=== PATIENT | male | born 1935 | race Caucasian/White ===

== ENCOUNTER 2020-06-09 18:01 | Inpatient (IN) | payer OTHER, SELFPAY ==
[~2020-06-09] VITALS: Ht 170.2 cm; Wt 78.5 kg
[2020-06-09 18:06] VITALS: BP_SYST 148
--- NOTE | 2020-06-09 18:06 | NUR ---
Placed in room 06 . Placed on bus driver/monitor, blood pressure machine and pulse oximeter. To gown for exam. Side rails up. Report given to CLEO STEPHENS
[2020-06-09] MEDS ORDERED: NACL 0.9% 1,000 ML IV ONE (18:15)
--- NOTE | 2020-06-09 18:15 | NUR ---
Patient BIB BLS C/O Altered LOC. Patient A&Ox3. Family reports patient became confused today after dentist appointment. Family teport several hours of confusion and unable to ambulate. family called 911.
[2020-06-09 18:44] LABS: BASOPHILS # (AUTO) 0.1 K/uL (0.0-0.2); BASOPHILS % (AUTO) 0.4 % (0.0-2.0); EOSINOPHILS % (AUTO) 0.1 % (0.0-4.0); HEMATOCRIT 45.9 % (36-54); HEMOGLOBIN 15.5 g/dL (14.0-18.0); LYMPHOCYTES # (AUTO) 0.4 K/uL (1.0-5.5); MEAN CORPUSCULAR HEMOGLOBIN 30 pg (27-31); MEAN CORPUSCULAR HGB CONC 34 % (32-36); MEAN CORPUSCULAR VOLUME 89 fL (79.0-98.0); MONOCYTES # (AUTO) 0.4 K/uL (0.0-1.0); MONOCYTES % (AUTO) 2.1 % (1.7-9.3); NEUTROPHILS # (AUTO) 18.1 K/uL (1.8-7.7); NEUTROPHILS % (AUTO) 95.4 % (40.0-70.0); PLATELET COUNT (AUTO) 193 K/uL (130-430); RED BLOOD CELL COUNT(AUTO) 5.16 MIL/uL (4.2-6.2); RED CELL DISTRIBUTION WIDTH 13.9 % (9.0-15.0); WHITE BLOOD COUNT (AUTO) 18.9 K/uL (4.8-10.8)
[2020-06-09 19:09] LABS: ANION GAP 11 (5-15); CALCIUM 8.4 mg/dL (8.4-11.0); CHLORIDE 101 mmol/L (98-107); CREATININE 1.33 mg/dL (0.55-1.30); GLUCOSE 104 mg/dL (70-99); POTASSIUM 3.1 mmol/L (3.5-5.1); SODIUM SERUM 137 mmol/L (136-145); UREA NITROGEN, BLOOD 14 mg/dL (8-21)
[2020-06-09] MEDS ORDERED: DILTIAZEM HCL 25 MG/5 ML VIAL IVP ONE (19:15)
--- NOTE | 2020-06-09 19:18 | NUR ---
Report to November RN
[2020-06-09 19:23] LABS: ALANINE AMINOTRANSFERASE 33 U/L (12-78); ALBUMIN 4.1 g/dL (3.4-4.8); ASPARTATE AMINOTRANSFERASE 29 U/L (10-37); TOTAL BILIRUBIN 1.5 mg/dL (0.0-1.0)
[2020-06-09 19:24] LABS: INR 1.1 (0.80-1.20); PROTHROMBIN TIME 10.9 SECS (9.5-12.5)
--- NOTE | 2020-06-09 19:26 | NUR ---
Patient pulled IV line and tried to get out off bed.
--- NOTE | 2020-06-09 19:28 | NUR ---
SPOKE TO GRAND DAUGHTER MICHAEL. GRAND DAUGHTER REPORTS PATIENT WAS AT THE DENTIST FOR ROUTINE CHECK UP AND STARTED SHAKING WHILE DOING XRAYS. GRANDDAUGHTER TOOK HIM HOME AND WITNESSED PATIENT IN HIS ROOM UNABLE TO STAND UP AND HAVING GENERALIZED WEAKNESS. PATIENT WAS THEN BROUGHT TO THE URGENT CARE WHEN 911 WAS CALLED. PATIENT BASELINE IS AOX 4 AND AMBULATORY.
--- NOTE | 2020-06-09 19:35 | NUR ---
PATIENT RIPPED OUT IV ON LEFT HAND. BLEEDING CONTROLLED.
--- NOTE | 2020-06-09 19:40 | NUR ---
# 20 gauge angiocath placed to RAC. Use of asceptic technique. Opsite placed over site. Blood return noted. Flushed with 10 cc of normal saline. No evidence of infiltration noted. Patient tolerated well.
[2020-06-09] MEDS ORDERED: cefTRIAXone 1 GM IVPB PREMIX 50 ML IV ONE (19:45)
[2020-06-09] MEDS ORDERED: NACL 0.9% 2,000 ML IV ONE (19:45)
--- NOTE | 2020-06-09 19:49 | NUR ---
Given Cardizem 5 mg IV as order.
--- NOTE | 2020-06-09 20:05 | NUR ---
ER at bedside examining patient.
[2020-06-09] MEDS ORDERED: VANCOMYCIN HCL 1,000 MG in NS 250 ML IV ONE (20:15)
--- NOTE | 2020-06-09 20:30 | NUR ---
Celina roman in [facility] - 06/09/20 at 2036 by [id number] Patient came back from CT scan.
--- NOTE | 2020-06-09 20:41 | NUR ---
Swabbed Covid-19 and sent to lab.
[2020-06-09] MEDS ORDERED: VANCOMYCIN HCL 1000 MG/VIAL IV ONE (20:58)
--- NOTE | 2020-06-09 21:31 | NUR ---
Patient came back from CT scan.
--- NOTE | 2020-06-09 21:34 | NUR ---
Changed new bed sheet and gown.
[2020-06-09 21:43] LABS: BILIRUBIN,URINE NEGATIVE (NEGATIVE); CLARITY/URINE CLEAR (CLEAR); COLOR,URINE YELLOW (YELLOW); GLUCOSE,URINE NEGATIVE (NEGATIVE); KETONES,URINE 1+ (NEGATIVE); LEUKOCYTE ESTERASE ,URINE NEGATIVE (NEGATIVE); NITRITE, URINE NEGATIVE (NEGATIVE); PH,URINE 5.5 (5.0-8.0); PROTEIN URINE NEGATIVE (NEGATIVE)
--- NOTE | 2020-06-09 22:11 | NUR ---
Patient resting quietly. No acute distress noted. Vital signs within normal range.
[2020-06-09 22:15] LABS: BLOOD, URINE TRACE (NEGATIVE)
[2020-06-09 22:25] LABS: BACTERIA,URINE None Seen /HPF (None Seen); CALCIUM PHOSPHATE CRYSTALS,UR None Seen /HPF (None Seen); TRICHOMONAS,URINE None Seen /HPF (None Seen); WBC,URINE NONE SEEN /HPF (0-3); YEAST,URINE None Seen /HPF (None Seen)
--- NOTE | 2020-06-09 22:25 | NUR ---
Spoke with Sharifa (Grand Daughter) to update patient status, treatment plans.
[2020-06-09] MEDS ORDERED: AMLO2.5T2 PO (22:26)
--- NOTE | 2020-06-09 22:27 | NUR ---
Medication reconciliation completed with information provided by Patient's family. Any prior medication reconciliation on file was reviewed and corrected.
--- NOTE | 2020-06-09 22:48 | NUR ---
Provide urinal for patient.
--- NOTE | 2020-06-09 22:52 | NUR ---
Patient will be admitted to care of Dr. Knowles. Admitted to Tele unit. Will go to room 132A. Belongings list completed. Complete and up to date summary report printed. SBAR report to be given at bedside with opportunity for questions.
--- NOTE | 2020-06-09 23:02 | NUR ---
ADMIT NOTE Received pt from ER to the floor with a diagnosis of sepsis. Admission process initiated. patient oriented to pain management, safety and call light-teach back done.
[2020-06-09 23:24] VITALS: BP_SYST 137
[2020-06-10] MEDS ORDERED: MORPHINE 2 MG/ML INJ. SYRINGE IVP PRN
[2020-06-10] MEDS ORDERED: NALOXONE HCL 0.4 MG/ML AMP (NARCAN) IVP PRN
[2020-06-10] MEDS ORDERED: ALBUTEROL SULFATE 0.083% 2.5 MG/3 ML VIAL.NEB INH PRN
[2020-06-10 00:05] VITALS: BP_SYST 137
[2020-06-10] MEDS ORDERED: POTASSIUM CHLORIDE 10 MEQ TAB.PRT.SR PO ONE (00:30)
[2020-06-10 01:00] VITALS: BP_SYST 140
[2020-06-10] MEDS: PIPERACILLIN/TAZO 3.375/DEX-IS 50 ML IV SCH ×4 (01:31→18:48)
[2020-06-10] MEDS: NACL 0.9% 1,000 ML IV SCH ×3 (01:32→20:00)
[2020-06-10] MEDS ORDERED: PIPERACILLIN/TAZOBACTAM 3.375 GM/VIAL (ZOSYN) IV ONE (01:32)
--- NOTE | 2020-06-10 03:00 | NUR ---
NEW IV SITE STARTED ON LEFT FOREARM 20G, IVF CHANGED TO THIS SITE, PATIENT TOLERATING IT WELL. PATIENT STILL HAS RIGHT AC 20G, PATENT AND BENIGN, NO S/S OF INFILTRATION OR INFECTION NOTED AT THIS TIME, SALINE LOCKED.
[2020-06-10 06:31] LABS: BASOPHILS % (AUTO) 0.2 % (0.0-2.0); HEMATOCRIT 37.8 % (36-54); HEMOGLOBIN 12.6 g/dL (14.0-18.0); LYMPHOCYTES # (AUTO) 0.5 K/uL (1.0-5.5); LYMPHOCYTES % (AUTO) 2.3 % (20.5-51.5); MEAN CORPUSCULAR HEMOGLOBIN 30 pg (27-31); MEAN CORPUSCULAR HGB CONC 33 % (32-36); MEAN CORPUSCULAR VOLUME 89 fL (79.0-98.0); MONOCYTES # (AUTO) 0.9 K/uL (0.0-1.0); MONOCYTES % (AUTO) 4.1 % (1.7-9.3); NEUTROPHILS # (AUTO) 19.8 K/uL (1.8-7.7); NEUTROPHILS % (AUTO) 93.4 % (40.0-70.0); PLATELET COUNT (AUTO) 154 K/uL (130-430); RED BLOOD CELL COUNT(AUTO) 4.27 MIL/uL (4.2-6.2); RED CELL DISTRIBUTION WIDTH 13.5 % (9.0-15.0); WHITE BLOOD COUNT (AUTO) 21.2 K/uL (4.8-10.8)
[2020-06-10 06:37] LABS: ALANINE AMINOTRANSFERASE 36 U/L (12-78); ALBUMIN 2.8 g/dL (3.4-4.8); ANION GAP 12 (5-15); ASPARTATE AMINOTRANSFERASE 43 U/L (10-37); CALCIUM 7.4 mg/dL (8.4-11.0); CHLORIDE 107 mmol/L (98-107); GLUCOSE 123 mg/dL (70-99); POTASSIUM 3.6 mmol/L (3.5-5.1); SODIUM SERUM 140 mmol/L (136-145); TOTAL BILIRUBIN 2.2 mg/dL (0.0-1.0); UREA NITROGEN, BLOOD 15 mg/dL (8-21)
--- NOTE | 2020-06-10 07:23 | NUR ---
OPENING NOTE Patient resting in the bed. No acute distress. Skin warm and dry to touch. IV intact to LFA, no redness, no swelling, no drainage. On NS at 100ml/hr, infusing well. Safety measure maintained. Bed locked in low position, side rails up, bed alarm on. Call light within reached. Will continue to monitor.
[2020-06-10 08:00] VITALS: BP_SYST 119
[2020-06-10] MEDS: ACETAMINOPHEN 325 MG TABLET PO PRN ×2 (08:23→20:45)
--- NOTE | 2020-06-10 08:25 | NUR ---
PKQQ=599.0, TYLENOL 650MG PO GIVEN ORDERED. PATIENT SITTING IN UPRIGHT POSITION AND EATING BREAKFAST. NO ACUTE DISTRESS. SAFETY MEASURE MAINTAINED. CALL LIGHT WITHIN REACHED. CONTINUE TO MONITOR.
--- NOTE | 2020-06-10 08:42 | NUR ---
CRITICAL LAB: TROPININ=0.[address] Eleni shelley, left message to Peg and waited to call back.
--- NOTE | 2020-06-10 09:02 | NUR ---
Nutrition Update Julius scale 16 noted. Pt admitted for sepsis Diet: Cardiac Diet BMI: 27.1 kg/m2 RD to follow per nutrition care standards.
--- NOTE | 2020-06-10 09:14 | NUR ---
RECEIVED CALL BACK FROM DR. STEWARD Reported to Dr. Steward, patient's Troponin=0.186. Dr. Steward with order Dusty Bhatia consult. Also reported to Dr. Steward, patient had ixwj=494.0 this morning.
--- NOTE | 2020-06-10 09:20 | NUR ---
CONSULT CARDIOLOGY ELEVATED TROPONIN DR ESCALANTE [phone] S/W [facility] OFFICE
--- NOTE | 2020-06-10 09:44 | NUR ---
RECHECKED TEMP=99.7
--- NOTE | 2020-06-10 10:48 | NUR ---
SEEN AND EXAMINED BY OPAL KO.
--- NOTE | 2020-06-10 11:18 | NUR ---
CONSULT ID FEVER DR SHETTY [phone] S/W [facility] OFFICE
--- NOTE | 2020-06-10 12:25 | NUR ---
ROUND Patient resting in the bed. No acute distress. IV intact, IVF infusing well. Safety measure maintained. Call light within reached. Bed locked in low position, side rails up, bed alarm on. Continue to monitor.
[2020-06-10 13:08] VITALS: BP_SYST 111
--- NOTE | 2020-06-10 14:40 | NUR ---
SEEN AND EXAMINED BY RICKY LIEBERMAN.
[2020-06-10] MEDS ORDERED: ASPIRIN 81 MG TAB.CHEW PO ONE (14:45)
--- NOTE | 2020-06-10 15:17 | NUR ---
POSITIVE BLOOD CULTURE Called and received the call from Jannette Kim. Reported positive blood culture result with Gram negative sindi. Dr. Steel with order of Gentamicin per pharmacy dose. Order read back and okay with Dr. Steel.
--- NOTE | 2020-06-10 15:37 | NUR ---
PATIENT PULLED IV OUT ON LFA, NO BLEEDING NOTE, IV TIP INTACT. PATIENT WANTED TO GO TO BATHROOM, ASSISTED TO BATHROOM WITH BM. ASSISTED BACK TO BED. CONNECTED BACK IVF NS [id number]/HR TO RAC. SAFETY MEASURE MAINTAINED. CALL LIGHT WITHIN REACHED. BED LOCKED IN LOW POSITION, SIDE RAILS UP, BED ALARM ON. CONTINUE TO MONITOR.
[2020-06-10 16:00] VITALS: BP_SYST 115
[2020-06-10] MEDS: GENTAMICIN 120 MG/ ISO-OSM 100 ML PREMIX IV SCH (17:39)
--- NOTE | 2020-06-10 17:55 | NUR ---
PATIENT MOVED TO ROOM 121 B FOR ISOLATION OF COVID PUI.
--- NOTE | 2020-06-10 18:55 | NUR ---
CLOSING NOTE Patient resting in the bed. No acute distress. Skin warm and dry to touch. IV intact to RAC, no redness, no swelling, no drainage. IVF infusing well. All needs met. On isolation. Safety measure maintained. Bed locked in low position, side rails up, bed alarm on. Call light within reached. Will endorse to night nurse.
--- NOTE | 2020-06-10 19:30 | NUR ---
Opening note Received patient awake, AOx3, no distress. He is on BSC for bowel movement. He was assisted back to bed, bed alarm on, 3 side rails up and instructed on use of call light. IVF infusing via IV to RAC. Reviewed plan of care; reason for isolation/precautions and he verbalized understanding. Will continue to monitor.
[2020-06-10 20:00] VITALS: BP_SYST 135
--- NOTE | 2020-06-10 20:50 | NUR ---
TEMP 100.3 Tylenol given for temp 100.3 (temporal scan). Patient denies pain.
--- NOTE | 2020-06-10 21:55 | NUR ---
Temp re-check temp decreased to 99.0; temporal scan
[2020-06-11] MEDS: PIPERACILLIN/TAZO 3.375/DEX-IS 50 ML IV SCH ×2 (00:01→05:50)
[2020-06-11 00:05] VITALS: BP_SYST 116
--- NOTE | 2020-06-11 00:05 | NUR ---
Antibiotic, BSC Zosyn IVPB administered as ordered. Reviewed side effects and patient verbalized understanding. Patient assisted to BSC for bowel movement; very small loose stool. Returned to bed, bed alarm/safety precautions maintained.
--- NOTE | 2020-06-11 00:30 | NUR ---
IV start IV on RAC alarms periodically d/t patient bending arm. He was informed an option of alternate IV site and he agreed to new IV placement. #20 gauge angiocath placed to right wrist. Use of asceptic technique and blood return noted. No evidence of infiltration noted. Patient tolerated and IV on RAC is saline locked.
--- NOTE | 2020-06-11 02:06 | NUR ---
Yuri Heart rate Patient is Yuri on monitor. Earlier while awake, during V/S he was yuri in 50's. information technology security analyst called to report patien'ts heart rate drops to low 40's. Patient was awakened and he denies dizziness and denies light headedness. Will continue to monitor.
[2020-06-11] MEDS: NACL 0.9% 1,000 ML IV SCH ×3 (04:10→19:56)
--- NOTE | 2020-06-11 04:10 | NUR ---
awake, IVF, V/S Patient is awake and sitting up for use of urinal, voided 200 ml bruna urine. V/S taken and remains yuri with B/P 103/57. He denies pain and reports he wants to sleep again. Hung new bag of IVF and infusing well, no infiltration noted. Safety precautions maintained.
[2020-06-11 04:11] VITALS: BP_SYST 103
--- NOTE | 2020-06-11 05:40 | NUR ---
EKG, LAB draw RT completed EKG and Senior Pastor at bedside for blood draw; tolerated.
--- NOTE | 2020-06-11 05:50 | NUR ---
Antibiotic, rounds Patient resting in bed, given due antibiotic. Provided with new gown. He felt warm, temp assessed; it was 100.1. Will give tylenol. He denies pain and has no further needs. Safety and isolation precautions maintained.
[2020-06-11] MEDS: ACETAMINOPHEN 325 MG TABLET PO PRN (05:56)
--- NOTE | 2020-06-11 05:56 | NUR ---
Temp 100.1, Tylenol Patient given Tylenol for temp of 100.1, also removed one blanket.
[2020-06-11 06:27] LABS: BASOPHILS # (AUTO) 0.1 K/uL (0.0-0.2); BASOPHILS % (AUTO) 0.8 % (0.0-2.0); EOSINOPHILS % (AUTO) 0.2 % (0.0-4.0); LYMPHOCYTES # (AUTO) 0.6 K/uL (1.0-5.5); LYMPHOCYTES % (AUTO) 5.5 % (20.5-51.5); MEAN CORPUSCULAR HEMOGLOBIN 30 pg (27-31); MEAN CORPUSCULAR HGB CONC 33 % (32-36); MEAN CORPUSCULAR VOLUME 89 fL (79.0-98.0); MONOCYTES # (AUTO) 0.7 K/uL (0.0-1.0); NEUTROPHILS # (AUTO) 10.2 K/uL (1.8-7.7); NEUTROPHILS % (AUTO) 87.5 % (40.0-70.0); PLATELET COUNT (AUTO) 121 K/uL (130-430); RED BLOOD CELL COUNT(AUTO) 4.37 MIL/uL (4.2-6.2); RED CELL DISTRIBUTION WIDTH 13.9 % (9.0-15.0)
--- NOTE | 2020-06-11 06:58 | NUR ---
temp re-check, closing note Temp decreased to 99.3; temporal scan. Patient resting in bed, no s/sx of distress and non labored breathing on room air. IVF infusing via IV to right wrist, no infiltration noted. Needs met throughout shift. Safety and isolation precautions maintained. Will endorse to day shift nurse.
[2020-06-11 07:07] LABS: WHITE BLOOD COUNT (AUTO) 11.7 K/uL (4.8-10.8)
[2020-06-11 07:31] LABS: ALANINE AMINOTRANSFERASE 44 U/L (12-78); ALBUMIN 2.6 g/dL (3.4-4.8); ANION GAP 10 (5-15); ASPARTATE AMINOTRANSFERASE 53 U/L (10-37); CALCIUM 7.6 mg/dL (8.4-11.0); CHLORIDE 108 mmol/L (98-107); GLUCOSE 96 mg/dL (70-99); POTASSIUM 3.6 mmol/L (3.5-5.1); SODIUM SERUM 139 mmol/L (136-145); THYROID STIMULATING HORMONE 3.07 uIu/mL (0.36-3.74); TOTAL BILIRUBIN 1.2 mg/dL (0.0-1.0); UREA NITROGEN, BLOOD 17 mg/dL (8-21)
[2020-06-11 08:00] VITALS: BP_SYST 124
--- NOTE | 2020-06-11 08:00 | NUR ---
Note Pt sitting on side of bed eating hhis breakfast. IVF's infusing well through right wrist IV site. RAC IV intact and patent. No SOB/resp distress or pain/discomfort noted at this time. Tele unit attached and intact at this time. No needs noted at this time. Call light within reach. Dr Chaudhary at pt's bedside assessing pt and writing orders at this time.
[2020-06-11] MEDS: ASPIRIN 81 MG TAB.CHEW PO SCH (08:28)
[2020-06-11] MEDS: ENOXAPARIN SODIUM 30 MG/0.3 ML SYRINGE SUBCUT SCH (08:29)
[2020-06-11 09:06] LABS: CHOLESTEROL 145 mg/dL (<200); HDL CHOLESTEROL 45 mg/dL (>45); LDL CHOLESTEROL 89 mg/dL (<100); TRIGLYCERIDES 80 mg/dL (30-150)
--- NOTE | 2020-06-11 09:35 | NUR ---
Note Pt resting in bed after using BSC with standby assist with RN. Denies any needs at this time. Call light within reach.
[2020-06-11 12:00] VITALS: BP_SYST 124
--- NOTE | 2020-06-11 12:00 | NUR ---
Note Pt's tele unit was dc'd and returned to monitoring tech. Pt denies any SOB/resp distress or pain/discomfort noted at this time.
--- NOTE | 2020-06-11 12:24 | NUR ---
Dietitian Recommendations *Recommend continue Cardiac Diet *Recommend add Ensure Enlive once daily to provide additional 350 kcal, 20 g protein to promote PO intake. Please see Nutrition Assessment for details. DEMAR DAVIAL
--- NOTE | 2020-06-11 14:00 | NUR ---
Note Pt aware he is NPO till 3-4pm for US of abdomen. Pt last ate breakfast at 09am. Pt asleep in bed at this time. No needs noted at this time. Call light within reach.
--- NOTE | 2020-06-11 15:50 | NUR ---
Note Dr Morocho called and notified that pt tested negative for COVID (PCR). Order for discontinue isolation precautions given at this time.
[2020-06-11 16:00] VITALS: BP_SYST 126
[2020-06-11] MEDS: GENTAMICIN 120 MG/ ISO-OSM 100 ML PREMIX IV SCH (16:13)
--- NOTE | 2020-06-11 18:05 | NUR ---
Note Pt sitting on side of bed eating his dinner. No SOB/resp distress or pain/discomfort noted at this this time. IV in right wrist intact and patent infusing IVF's well. RAC IV intact and patent at this time. Pt was checked on q1' and PRN all shift for needs and care. Pt was maintained with safety and isolation precautions all shift. No needs noted at this time. Call light within reach. Pt's 2D-echo and US of abdomen were done at bedside this shift.
--- NOTE | 2020-06-11 19:30 | NUR ---
OPENING NOTES RECEIVED REPORT FROM DAY SHIFT RN. PT RESTING IN BED, BREATHING EVEN AND UNLABORED TO ROOM AIR. NO SIGNS OF RESPIRATORY DISTRESS NOTED. IV ON RIGHT WRIST AND AC INTACT, NO SIGNS OF INFILTRATION NOTED. BED ALARM ON, LOCKED IN LOWEST POSITION. CALL LIGHT WITHIN REACH. CLOSE TO NURSING STATION. SIDE RAILS UP X3. SAFETY AND FALL PRECAUTIONS MAINTAINED. WILL CONTINUE TO MONITOR.
--- NOTE | 2020-06-11 19:56 | NUR ---
HUNG NEW IVF HUNG NEW IVF ORDERED RATE. NO SIGNS OF INFILTRATION NOTED. PT HERMINIO ANY PAIN AT THIS TIME. ASSISTED TO BEDSIDE COMMODE, 1 BM NOTED. PT BACK TO BED SAFELY. BREATHING EVEN AND UNLABORED TO ROOM AIR. CALL LIGHT WITHIN REACH. BED ALARM ON, LOCKED IN LOWEST POSITION. SAFETY AND FALL PRECAUTIONS MAINTAINED. WILL CONTINUE TO MONITOR.
[2020-06-11 20:00] VITALS: BP_SYST 150
--- NOTE | 2020-06-11 22:05 | NUR ---
RN ROUNDS PT SLEEPING. CHEST RISE AND FALL SYMMETRICAL. IV ON RIGHT WRIST INTACT, IVF RUNNING ORDERED RATE. NO SIGNS OF INFILTRATION NOTED. BED ALARM ON, LOCKED IN LOWEST POSITION. CALL LIGHT WITHIN REACH. CLOSE TO NURSING STATION. SIDE RAILS UP X3. SAFETY AND FALL PRECAUTIONS ARE IN PLACE. WILL MONITOR.
[2020-06-12] MEDS: ACETAMINOPHEN 325 MG TABLET PO PRN (00:09)
--- NOTE | 2020-06-12 00:09 | NUR ---
FEVER 100.9 TEMPERATURE NOTED. ADMINISTERED TYLENOL ORDERED PRN. DISCUSSED MEDICATION ACTIONS AND POTENTIAL SIDE EFFECTS. PT VERBALIZED UNDERSTANDING. WILL RECHECK THE TEMPERATURE WITHIN ONE HOUR.
[2020-06-12 00:27] VITALS: BP_SYST 155
--- NOTE | 2020-06-12 01:09 | NUR ---
RECHECKED TEMPERATURE 99.0 TEMPERATURE NOTED AT THIS TIME. PT HERMINIO ANY PAIN.
--- NOTE | 2020-06-12 03:30 | NUR ---
RN ROUNDS PT SLEEPING. BREATHING EVEN AND UNLABORED TO ROOM AIR. NO S/S OF ACUTE DISTRESS NOTED. IVF RUNNING ORDERED RATE. NO SIGNS OF INFILTRATION NOTED. CALL LIGHT WITHIN REACH. BED ALARM ON, LOCKED IN LOWEST POSITION. CLOSE TO NURSING STATION. SAFETY AND FALL PRECAUTIONS MAINTAINED. WILL CONTINUE TO MONITOR.
[2020-06-12] MEDS: NACL 0.9% 1,000 ML IV SCH ×2 (04:31→22:29)
--- NOTE | 2020-06-12 06:26 | NUR ---
CLOSING NOTES PT RESTING IN BED, BREATHING EVEN AND UNLABORED TO ROOM AIR. NO SIGNS OF RESPIRATORY DISTRESS NOTED. IV ON RIGHT WRIST AND AC INTACT, NO SIGNS OF INFILTRATION NOTED. BED ALARM ON, LOCKED IN LOWEST POSITION. CALL LIGHT WITHIN REACH. CLOSE TO NURSING STATION. SIDE RAILS UP X3. SAFETY AND FALL PRECAUTIONS MAINTAINED. ALL NEEDS ARE MET THROUGHOUT SHIFT. WILL CONTINUE TO MONITOR UNTIL ENDORSE TO DAY SHIFT RN.
--- NOTE | 2020-06-12 09:28 | NUR ---
dangling, just finished breakfast, 1/2 consumption. alert, oriented, knows his surroundings, but did not know why he is in the hospital. encouraged to call for any assistance, and bsc for his convenience
[2020-06-12] MEDS: ASPIRIN 81 MG TAB.CHEW PO SCH (09:47)
[2020-06-12] MEDS: ENOXAPARIN SODIUM 30 MG/0.3 ML SYRINGE SUBCUT SCH (09:51)
[2020-06-12 12:14] VITALS: BP_SYST 149
[2020-06-12] MEDS: GENTAMICIN 120 MG/ ISO-OSM 100 ML PREMIX IV SCH (16:10)
[2020-06-12 16:14] VITALS: BP_SYST 139
--- NOTE | 2020-06-12 19:30 | NUR ---
OPENING NOTES RECEIVED REPORT FROM DAY SHIFT RN. PT RESTING IN BED, BREATHING EVEN AND UNLABORED TO ROOM AIR. PT HERMINIO ANY PAIN AT THIS TIME. NO S/S OF ACUTE DISTRESS NOTED. IVF RUNNING ORDERED RATE, IV ON RIGHT AC AND WRIST 20G INTACT, NO SIGNS OF INFILTRATION NOTED. BED LOCKED IN LOWEST POSITION. SIDE RAILS UP X3. SAFETY AND FALL PRECAUTIONS MAINTAINED. WILL CONTINUE TO MONITOR.
[2020-06-12 20:00] VITALS: BP_SYST 147
--- NOTE | 2020-06-12 22:55 | NUR ---
RN ROUNDS PT SLEEPING. CHEST RISE AND FALL SYMMETRICAL. NO SIGNS OF RESPIRATORY DISTRESS NOTED. IVF RUNNING ORDERED RATE. PT TOLERATING WELL. CALL LIGHT WITHIN REACH. BED ALARM ON, LOCKED IN LOWEST POSITION. CLOSE TO NURSING STATION. SAFETY AND FALL PRECAUTIONS MAINTAINED. WILL CONTINUE TO MONITOR.
[2020-06-13 02:53] VITALS: BP_SYST 155
[2020-06-13] MEDS: NACL 0.9% 1,000 ML IV SCH (06:18)
--- NOTE | 2020-06-13 06:54 | NUR ---
CLOSING NOTES PT RESTING IN BED, BREATHING EVEN AND UNLABORED TO ROOM AIR. PT HERMINIO ANY PAIN AT THIS TIME. NO S/S OF ACUTE DISTRESS NOTED. IVF RUNNING ORDERED RATE. NO SIGNS OF INFILTRATION NOTED. BED LOCKED IN LOWEST POSITION. SIDE RAILS UP X3. SAFETY AND FALL PRECAUTIONS MAINTAINED. ALL NEEDS ARE MET THROUGHOUT SHIFT. WILL CONTINUE TO MONITOR UNTIL ENDORSE TO DAY SHIFT RN.
[2020-06-13 08:00] VITALS: BP_SYST 153
[2020-06-13] MEDS: ASPIRIN 81 MG TAB.CHEW PO SCH (09:18)
[2020-06-13] MEDS: ENOXAPARIN SODIUM 30 MG/0.3 ML SYRINGE SUBCUT SCH (09:19)
[2020-06-13 09:45] VITALS: BP_SYST 155
[2020-06-13] MEDS ORDERED: LEVO500T89 PO (11:05)
[2020-06-13 12:10] VITALS: BP_SYST 153
--- NOTE | 2020-06-13 13:41 | NUR ---
alert, oriented and appropriate. out of bed, walked to the bathroom, with standby assistance. Gait slow but steady. Seen by attending, patient is discharged to home. Called Anna, and let her know to apple picking supervisor the patient at 1500 today. All discharge instructions reviewed with the significant other, and all questions answered in details. Patient is discharged to home
[2020-06-13 13:45] VITALS: BP_SYST 153
== END 2020-06-13 14:45 | disposition home or self-care (01) | DRG 871 ==
LOC: SED 18:01 → SMU 22:37 → STU 22:52 → SMU 06-11 10:52
PROVIDERS: ADMIT Internal Medicine Hospice and Palliative Medicine; ATTEND Internal Medicine Hospice and Palliative Medicine
DX: A41.59 Other Gram-negative sepsis (principal); I21.A1 Myocardial infarction type 2; N10 Acute pyelonephritis; E87.6 Hypokalemia; F03.90 Unspecified dementia, unspecified severity, without behavioral disturbance, psychotic disturbance, mood disturbance, and anxiety; R65.20 Severe sepsis without septic shock; I48.0 Paroxysmal atrial fibrillation; I10 Essential (primary) hypertension; Z20.828 Contact with and (suspected) exposure to other viral communicable diseases; Z82.49 Family history of ischemic heart disease and other diseases of the circulatory system
CPT/HCPCS: 36415; 70450-TC; 71045; 76705; 80053; 80061; 81000-TC; 83605; 83735-TC; 83880; 84443-TC; 84484; 85025; 85610-TC; 85730-TC; 87040-TC; 87086; 93005; 93306; 96361; 96365; 96367; 96375; 99285; G0378; J0696; J1580; J1650; J2543; J3370; J3490; J7030; J7060; U0003